=== PATIENT | male | born 1945 | race Caucasian/White ===

== ENCOUNTER → 2019-05-22 | Outpatient (CLI) | payer OTHER | END | disposition home or self-care (01) | LOC: OIH 14:13 | PROVIDERS: ATTEND Internal Medicine Cardiovascular Disease | DX: Z13.6 Encounter for screening for cardiovascular disorders (principal) | CPT/HCPCS: 75571 ==

== ENCOUNTER → 2019-06-19 | Outpatient (CLI) | payer OTHER ==
[~2019-06-19] VITALS: Ht 175.3 cm; Wt 102.5 kg
[~2019-06-19] MED LIST: REGADENOSON 0.4 MG/5 ML PF SYG IVP SCH
== END | disposition home or self-care (01) ==
LOC: SHCH 08:47
PROVIDERS: ATTEND Internal Medicine Cardiovascular Disease
DX: I25.10 Atherosclerotic heart disease of native coronary artery without angina pectoris (principal)
CPT/HCPCS: 78452; 93017; 96374; A9500 ×2; J2785

== ENCOUNTER 2020-01-04 08:00 | Inpatient (IN) | payer OTHER ==
[~2020-01-04] VITALS: Ht 175.3 cm; Wt 99.6 kg
[2020-01-04 09:45] LABS: BASOPHILS % (AUTO) 0.5 % (0.0-5.0); LYMPHOCYTES % (AUTO) 15.7 % (21.0-51.0); MEAN CORPUSCULAR HEMOGLOBIN 31.6 pg (27.0-33.0); MEAN CORPUSCULAR HGB CONC 35.1 g/dL (32.0-36.0); MEAN CORPUSCULAR VOLUME 89.9 fL (79-99); MONOCYTES % (AUTO) 9.2 % (3.0-13.0); NEUTROPHILS % (AUTO) 72.1 % (40.0-77.0); PLATELET COUNT (AUTO) 160 K/uL (130-400); RED BLOOD CELL COUNT(AUTO) 4.56 MIL/uL (4.50-6.20); RED CELL DISTRIBUTION WIDTH 13.2 % (11.0-15.5); WHITE BLOOD COUNT (AUTO) 6.1 K/uL (4.8-10.8)
[2020-01-04 09:56] LABS: HEMOGLOBIN A1C 7.6 % (4.0-6.0)
[2020-01-04 09:59] LABS: INR 0.94 (0.85-1.15); PARTIAL THROMBOPLASTIN TIME 25.2 SEC (26.3-35.5); PROTHROMBIN TIME 10.2 SEC (9.6-11.6)
[2020-01-04 10:02] LABS: ALBUMIN 3.8 g/dL (3.5-5.0); BILIRUBIN,TOTAL 0.4 mg/dL (0.2-1.0); CREATININE 1.2 mg/dL (0.5-1.5); POTASSIUM 4.5 mmol/L (3.5-5.1); TOTAL PROTEIN, SERUM 7.4 g/dL (6.0-8.3)
[2020-01-04 15:55] VITALS: BP 128/83
[2020-01-06] VITALS (24 sets, daily range): BP systolic 141–161; BP diastolic 78–93
[2020-01-06] MEDS ORDERED: ROPIVACAINE 0.2% 2MG/ML 100ML VIAL IJ ONE (11:43)
[2020-01-06] MEDS ORDERED: SODIUM CHLORIDE 0.9% 1000ML 1,000 ML IV ONE (12:43)
[2020-01-06] MEDS: CEFUROXIME SODIUM 1.5 GM VIAL ONE ×2 (12:46→19:10)
[2020-01-06] MEDS ORDERED: ATOR10TA69 PO (12:53)
[2020-01-06] MEDS ORDERED: GLIP5TAB11 PO (12:53)
[2020-01-06] MEDS ORDERED: METO25TA6 PO (12:53)
[2020-01-06] MEDS ORDERED: ASPI-556 PO (12:53)
[2020-01-06] MEDS ORDERED: METF-446 PO (12:53)
[2020-01-06] MEDS ORDERED: AMLO-257 PO (12:53)
[2020-01-06] MEDS ORDERED: HYDR25TA PO (12:53)
--- NOTE | 2020-01-06 12:55 | NUR ---
POTENTIAL FOR INFECTION: SHAVED FULL CHEST TO MID ABDOMEN PER ALEX SARGENT, FOLLOWED BY WIPING WITH RICHARD: 2% CHLORHEXIDINE GLUCONATE CLOTH PATIENTS PRE-OP SKIN PREP.
[2020-01-06] MEDS ORDERED: FENTANYL CITRATE PF 50 MCG/1 ML 5ML AMP IV ONE (14:18)
[2020-01-06] MEDS ORDERED: PROPOFOL 10 MG/ML 20ML VIAL IV ONE (14:18)
[2020-01-06] MEDS ORDERED: LIDOCAINE PF 2% 5ML ABBOJECT ONE (14:18)
[2020-01-06] MEDS ORDERED: MIDAZOLAM HCL 1 MG/ML 2ML VIAL ONE (14:18)
[2020-01-06] MEDS ORDERED: ROCURONIUM 10MG/1ML SYR 10 MG/ML ML ONE ×2 (14:19→19:31)
[2020-01-06] MEDS ORDERED: ROPIVACAINE 0.5% 5MG/ML 30ML IJ ONE (18:40)
[2020-01-06] MEDS ORDERED: CEFAZOLIN SODIUM 1 GM VIAL ONE (18:40)
[2020-01-06] MEDS ORDERED: KETAMINE 50MG/ML SYRINGE 50 MG/ML DISP.SYRIN IV ONE (19:53)
[2020-01-06] MEDS ORDERED: GLUCAGON 1MG KIT 1 MG ML IM PRN (20:00)
[2020-01-06] MEDS ORDERED: Q-PUMP 1 EACH IRRIG SCH (20:00)
[2020-01-06] MEDS ORDERED: POTASSIUM CHLORIDE 20MEQ/100ML 100 ML IV PRN ×2 (20:00)
[2020-01-06] MEDS ORDERED: TRAMADOL HCL 50 MG TABLET PO PRN (20:00)
[2020-01-06] MEDS ORDERED: LIDOCAINE HCL-MPF 1% 2ML VIAL IV PRN ×2 (20:00)
[2020-01-06] MEDS ORDERED: DEXTROSE 50%-WATER 50 ML DISP.SYRIN IV PRN (20:00)
[2020-01-06] MEDS ORDERED: POTASSIUM CHLORIDE 10% ELIXIR 20 MEQ/15 ML UDCUP PO PRN (20:00)
[2020-01-06] MEDS ORDERED: GLYCOPYRROLATE 1 MG/5 ML SYRINGE ONE (20:33)
[2020-01-06] MEDS ORDERED: NEOSTIGMINE 5MG/5ML SYR IV ONE (20:33)
[2020-01-06] MEDS: METFORMIN HCL 500 MG TABLET PO SCH (20:42)
[2020-01-06] MEDS: INSULIN HUMULIN R 100 UNIT/ML 3ML SQ SCH (21:00)
[2020-01-06] MEDS ORDERED: MEPERIDINE-PF 25 MG/ML SYG ONE ×2 (21:21→21:35)
[2020-01-06] MEDS ORDERED: HYDROMORPHONE 1 MG/1 ML AMP ONE (21:52)
[2020-01-06] MEDS: KETOROLAC TROMETHAMINE 30MG/ML IV SCH (22:00)
[2020-01-07] VITALS (13 sets, daily range): BP systolic 128–161; BP diastolic 64–108
[2020-01-07] MEDS: KETOROLAC TROMETHAMINE 30MG/ML IV SCH ×4 (02:58→22:16)
[2020-01-07] MEDS: CEFAZOLIN SODIUM 1 GM VIAL IVP SCH ×3 (03:00→18:28)
[2020-01-07 05:27] LABS: HEMATOCRIT 38.7 % (42-54); MEAN CORPUSCULAR HEMOGLOBIN 31.6 pg (27.0-33.0); MEAN CORPUSCULAR HGB CONC 35.1 g/dL (32.0-36.0); RED BLOOD CELL COUNT(AUTO) 4.3 MIL/uL (4.50-6.20); RED CELL DISTRIBUTION WIDTH 13.2 % (11.0-15.5); WHITE BLOOD COUNT (AUTO) 8.7 K/uL (4.8-10.8)
[2020-01-07 05:49] LABS: CREATININE 1.4 mg/dL (0.5-1.5); POTASSIUM 4.4 mmol/L (3.5-5.1)
[2020-01-07] MEDS: TRAMADOL HCL 50 MG TABLET PO PRN ×3 (06:22→21:00)
--- NOTE | 2020-01-07 07:00 | NUR ---
PATIENT UPDATE Pt s/p rt lower lobectomy by Dr. Manzano, admitted fr PACU last night at 2300 . Rt chest tube to 20cm h2o suction, total of 450 cc's output overnight. Weaned off from the O2 at 0600, o2 sat at 95%. Medicated with tramadol 100 mg early this am for pain on the rt chest at 8/10. King cath d/c at 0630, urinal provided at the bedside. Reinforced IS, able to do only 1,000 cc's as compared with 4,000 cc's pre op. Need to reinforce incentive spirometer as per order.
[2020-01-07] MEDS: INSULIN HUMULIN R 100 UNIT/ML 3ML SQ SCH ×4 (07:30→21:00)
[2020-01-07] MEDS ORDERED: KETOROLAC TROMETHAMINE 15MG/ML IV PRN (08:00)
[2020-01-07] MEDS: METFORMIN HCL 500 MG TABLET PO SCH ×2 (08:25→16:30)
[2020-01-07] MEDS: HYDROCHLOROTHIAZIDE 25 MG TABLET PO SCH (09:32)
[2020-01-07] MEDS: METOPROLOL TARTRATE 25 MG TAB PO SCH (09:32)
[2020-01-07] MEDS: GLIPIZIDE 5 MG TABLET PO SCH (09:32)
[2020-01-07] MEDS: ASPIRIN 81 MG EC TAB PO SCH (09:32)
[2020-01-07] MEDS: ATORVASTATIN CALCIUM 10 MG TABLET PO SCH (09:32)
[2020-01-07] MEDS: AMLODIPINE BESYLATE 5 MG TAB PO SCH (09:32)
--- NOTE | 2020-01-07 14:14 | NUR ---
DCP CM met with pt discussed dc plans. Pt is indendent prior to surgery, lives at home with spouse. Denies any equipments/services. Feels safe to go back home, spouse able to assist with transportation and needs as necessary. DC plan to home once stable. CM to cont to follow up. Addendum: 01/07/20 at 1416 by SIMRAN WESTON LVN CM Amended: Links added.
[2020-01-08] VITALS (7 sets, daily range): BP systolic 124–150; BP diastolic 69–90
[2020-01-08] MEDS: KETOROLAC TROMETHAMINE 30MG/ML IV SCH ×4 (03:50→21:53)
[2020-01-08 04:26] LABS: HEMATOCRIT 35.2 % (42-54); MEAN CORPUSCULAR HEMOGLOBIN 31.4 pg (27.0-33.0); MEAN CORPUSCULAR HGB CONC 35.2 g/dL (32.0-36.0); MEAN CORPUSCULAR VOLUME 89.1 fL (79-99); RED BLOOD CELL COUNT(AUTO) 3.95 MIL/uL (4.50-6.20); RED CELL DISTRIBUTION WIDTH 13.3 % (11.0-15.5); WHITE BLOOD COUNT (AUTO) 7.7 K/uL (4.8-10.8)
[2020-01-08 04:51] LABS: CREATININE 1.3 mg/dL (0.5-1.5); POTASSIUM 3.3 mmol/L (3.5-5.1)
[2020-01-08] MEDS: POTASSIUM CHLORIDE 20 MEQ ERTAB PO PRN ×3 (06:08→21:54)
[2020-01-08] MEDS: INSULIN HUMULIN R 100 UNIT/ML 3ML SQ SCH ×4 (06:26→21:00)
[2020-01-08] MEDS: ASPIRIN 81 MG EC TAB PO SCH (08:43)
[2020-01-08] MEDS: METOPROLOL TARTRATE 25 MG TAB PO SCH (08:43)
[2020-01-08] MEDS: AMLODIPINE BESYLATE 5 MG TAB PO SCH (08:43)
[2020-01-08] MEDS: METFORMIN HCL 500 MG TABLET PO SCH ×2 (08:43→17:00)
[2020-01-08] MEDS: ATORVASTATIN CALCIUM 10 MG TABLET PO SCH (08:43)
[2020-01-08] MEDS: GLIPIZIDE 5 MG TABLET PO SCH (08:44)
[2020-01-08] MEDS: HYDROCHLOROTHIAZIDE 25 MG TABLET PO SCH (08:44)
--- NOTE | 2020-01-08 11:50 | NUR ---
DR. Braden GUNDERSON IN ROOM SPEAKING WITH PT. RE:PLAN OF CARE. QUESTIONS ANSWERED BY DR. GUNDERSON.
--- NOTE | 2020-01-08 13:45 | NUR ---
DR. ANDRADE IN ROOM ASSESSING/SPEAKING WITH PT. RE:PLAN OF CARE. QUESTIONS ANSWERED BY DR. ANDRADE.
[2020-01-08] MEDS: TRAMADOL HCL 50 MG TABLET PO PRN (14:28)
[2020-01-09 03:18] VITALS: BP 142/92
[2020-01-09] MEDS: KETOROLAC TROMETHAMINE 30MG/ML IV SCH (04:09)
[2020-01-09] MEDS: INSULIN HUMULIN R 100 UNIT/ML 3ML SQ SCH ×4 (05:27→20:46)
[2020-01-09 08:00] VITALS: BP 151/82
[2020-01-09] MEDS: ASPIRIN 81 MG EC TAB PO SCH (08:09)
[2020-01-09] MEDS: HYDROCHLOROTHIAZIDE 25 MG TABLET PO SCH (08:09)
[2020-01-09] MEDS: ATORVASTATIN CALCIUM 10 MG TABLET PO SCH (08:09)
[2020-01-09] MEDS: METOPROLOL TARTRATE 25 MG TAB PO SCH (08:09)
[2020-01-09] MEDS: GLIPIZIDE 5 MG TABLET PO SCH (08:09)
[2020-01-09] MEDS: METFORMIN HCL 500 MG TABLET PO SCH ×2 (08:09→16:46)
[2020-01-09] MEDS: AMLODIPINE BESYLATE 5 MG TAB PO SCH (08:10)
--- NOTE | 2020-01-09 10:03 | NUR ---
DR. ANDRADE IN ROOM SPEAKING WITH PT. RE:PLAN OF CARE. QUESTIONS ANSWERED BY DR. ANDRADE.
--- NOTE | 2020-01-09 10:11 | NUR ---
DR. ANDRADE NOTIFIED RE:CHEST TUBE OUTPUT BY THIS NURSE; MD VERBALIZED UNDERSTANDING AND ORDERS RECEIVED.
[2020-01-09] MEDS ORDERED: LACTULOSE 20 GM/30 ML UDCUP PO PRN (11:15)
[2020-01-09 11:31] VITALS: BP 135/58
[2020-01-09] MEDS: FUROSEMIDE 10 MG/ML 2ML VIAL IV SCH ×2 (11:58→20:39)
[2020-01-09 16:00] VITALS: BP 136/82
[2020-01-09] MEDS: ACETAMINOPHEN 325 MG TAB PO PRN (16:51)
[2020-01-09] MEDS: TRAMADOL HCL 50 MG TABLET PO PRN (18:00)
[2020-01-09 20:12] VITALS: BP 144/76
[2020-01-09] MEDS: POTASSIUM CHLORIDE 20 MEQ ERTAB PO PRN (21:00)
[2020-01-09 23:57] VITALS: BP 141/79
[2020-01-10] MEDS: TRAMADOL HCL 50 MG TABLET PO PRN ×3 (02:41→14:09)
[2020-01-10 04:02] VITALS: BP 136/80
[2020-01-10] MEDS: ACETAMINOPHEN 325 MG TAB PO PRN ×2 (05:55→11:36)
[2020-01-10] MEDS: INSULIN HUMULIN R 100 UNIT/ML 3ML SQ SCH ×4 (06:12→20:22)
[2020-01-10 07:00] VITALS: BP 149/89
[2020-01-10] MEDS: FUROSEMIDE 10 MG/ML 2ML VIAL IV SCH ×2 (08:22→19:53)
[2020-01-10] MEDS: METOPROLOL TARTRATE 25 MG TAB PO SCH (08:22)
[2020-01-10] MEDS: ASPIRIN 81 MG EC TAB PO SCH (08:22)
[2020-01-10] MEDS: METFORMIN HCL 500 MG TABLET PO SCH ×2 (08:22→16:21)
[2020-01-10] MEDS: AMLODIPINE BESYLATE 5 MG TAB PO SCH (08:22)
[2020-01-10] MEDS: ATORVASTATIN CALCIUM 10 MG TABLET PO SCH (08:23)
[2020-01-10] MEDS: HYDROCHLOROTHIAZIDE 25 MG TABLET PO SCH (08:23)
[2020-01-10] MEDS: GLIPIZIDE 5 MG TABLET PO SCH (08:23)
--- NOTE | 2020-01-10 09:35 | NUR ---
DR. ANDRADE IN ROOM SPEAKING WITH PT. RE:PLAN OF CARE. QUESTIONS ANSWERED BY DR. ANDRADE.
[2020-01-10 11:00] VITALS: BP 129/74
[2020-01-10] MEDS ORDERED: GABAPENTIN 300 MG CAPSULE ONE ×2 (11:29→20:03)
[2020-01-10] MEDS: GABAPENTIN 300 MG CAPSULE PO SCH ×2 (13:04→20:21)
[2020-01-10] MEDS ORDERED: TRAMADOL HCL 50 MG TABLET PO PRN (13:15)
[2020-01-10 16:00] VITALS: BP 146/76
[2020-01-10 19:38] VITALS: BP 147/79
[2020-01-10 23:33] VITALS: BP 128/77
[2020-01-11] MEDS: TRAMADOL HCL 50 MG TABLET PO PRN ×3 (02:06→12:09)
[2020-01-11 03:39] VITALS: BP 153/86
[2020-01-11] MEDS: INSULIN HUMULIN R 100 UNIT/ML 3ML SQ SCH ×2 (06:25→11:17)
[2020-01-11 07:00] VITALS: BP 132/87
[2020-01-11] MEDS: METFORMIN HCL 500 MG TABLET PO SCH (08:18)
[2020-01-11] MEDS: GLIPIZIDE 5 MG TABLET PO SCH (08:18)
[2020-01-11] MEDS: METOPROLOL TARTRATE 25 MG TAB PO SCH (08:18)
[2020-01-11] MEDS: AMLODIPINE BESYLATE 5 MG TAB PO SCH (08:19)
[2020-01-11] MEDS: HYDROCHLOROTHIAZIDE 25 MG TABLET PO SCH (08:19)
[2020-01-11] MEDS: ASPIRIN 81 MG EC TAB PO SCH (08:19)
[2020-01-11] MEDS: ATORVASTATIN CALCIUM 10 MG TABLET PO SCH (08:19)
[2020-01-11] MEDS: GABAPENTIN 300 MG CAPSULE PO SCH ×2 (08:19→14:39)
[2020-01-11] MEDS: FUROSEMIDE 10 MG/ML 2ML VIAL IV SCH (08:19)
[2020-01-11] MEDS ORDERED: GABA300C PO (09:56)
[2020-01-11 11:02] VITALS: BP 134/79
--- NOTE | 2020-01-11 14:00 | NUR ---
DISCHARGE PT AWAKE AND ORIENTED, DC HOME INSTRUCTIONS GIVEN TO PT AND SPOUSE. ALL QUESTIONS ANSWERED. PT AWARE OF 2 PRESCRIPTIONS PENDING AT [place].
== END 2020-01-11 15:00 | disposition home or self-care (01) | DRG 165 ==
LOC: DAHIP 01-06 10:52 → 4BH 01-06 22:55
PROVIDERS: ADMIT Thoracic Surgery (Cardiothoracic Vascular Surgery); ATTEND Thoracic Surgery (Cardiothoracic Vascular Surgery)
PROC: 0BBF0ZZ Excision of Right Lower Lung Lobe, Open Approach (ICD-10-PCS; principal; 2020-01-06 19:33)
DX: C34.31 Malignant neoplasm of lower lobe, right bronchus or lung (principal); E11.22 Type 2 diabetes mellitus with diabetic chronic kidney disease; E78.00 Pure hypercholesterolemia, unspecified; E78.5 Hyperlipidemia, unspecified; G89.12 Acute post-thoracotomy pain; I12.9 Hypertensive chronic kidney disease with stage 1 through stage 4 chronic kidney disease, or unspecified chronic kidney disease; E66.01 Morbid (severe) obesity due to excess calories; K21.9 Gastro-esophageal reflux disease without esophagitis; E03.9 Hypothyroidism, unspecified; F43.10 Post-traumatic stress disorder, unspecified; F41.9 Anxiety disorder, unspecified; N40.0 Benign prostatic hyperplasia without lower urinary tract symptoms; J44.9 Chronic obstructive pulmonary disease, unspecified; N18.9 Chronic kidney disease, unspecified; Z68.32 Body mass index [BMI] 32.0-32.9, adult; Z79.84 Long term (current) use of oral hypoglycemic drugs; Z79.899 Other long term (current) drug therapy; Z87.891 Personal history of nicotine dependence
CPT/HCPCS: 36415; 71045; 71046; 80048; 80053; 82948; 83036; 85025; 85027; 85610; 85730; 86850; 86900; 86901; 86922; 88309; 88341; 88342; 93005; 94010; 97039; A4344; A7048; G0378; J0690; J0697; J1170; J1815; J1885; J1940; J2001; J2175; J2250; J2704; J2710; J2795; J3010; J3490; J7030; U0003

== ENCOUNTER → 2020-05-10 | Outpatient (CLI) | payer OTHER ==
[~2020-05-10] MED LIST changes: +AMLO-257 PO; +ASPI-556 PO; +ATOR10TA69 PO; +GABA300C PO; +GLIP5TAB11 PO; +HYDR25TA PO; +METF-446 PO; +METO25TA6 PO; -REGADENOSON 0.4 MG/5 ML PF SYG IVP SCH
== END | disposition home or self-care (01) ==
LOC: SHCH 14:04
PROVIDERS: ATTEND Internal Medicine Cardiovascular Disease
DX: I65.23 Occlusion and stenosis of bilateral carotid arteries (principal); I25.10 Atherosclerotic heart disease of native coronary artery without angina pectoris
CPT/HCPCS: 93880

== ENCOUNTER → 2022-11-17 | Outpatient (CLI) | payer OTHER | END | disposition home or self-care (01) | LOC: SHCH 09:21 | PROVIDERS: ATTEND Internal Medicine Cardiovascular Disease | DX: I70.293 Other atherosclerosis of native arteries of extremities, bilateral legs (principal) | CPT/HCPCS: 93925 ==

== ENCOUNTER → 2022-11-22 | Outpatient (CLI) | payer OTHER | END | disposition home or self-care (01) | LOC: SHCH 07:39 | PROVIDERS: ATTEND Internal Medicine Cardiovascular Disease | DX: I65.23 Occlusion and stenosis of bilateral carotid arteries (principal); I73.9 Peripheral vascular disease, unspecified | CPT/HCPCS: 93880 ==

== ENCOUNTER → 2023-07-04 | Outpatient (CLI) | payer OTHER ==
[~2023-07-04] MED LIST changes: -GLIP5TAB11 PO; +GLIP5TAB15 PO
== END | disposition home or self-care (01) ==
LOC: SHCH 14:32
PROVIDERS: ATTEND Internal Medicine Cardiovascular Disease
DX: I87.2 Venous insufficiency (chronic) (peripheral) (principal)
CPT/HCPCS: 93970